=== PATIENT | male | born 1965 | race Caucasian/White ===

== ENCOUNTER 2018-09-02 12:44 | Emergency (ER) | payer MEDICAID ==
[~2018-09-02] VITALS: Ht 162.6 cm; Wt 95.3 kg
[2018-09-02] MEDS ORDERED: GABA600T12 PO (12:57)
--- NOTE | 2018-09-02 13:13 | NUR ---
Patient discharged to home in stable conditon. Written and verbal after care instructions given. Patient verbalizes understanding of instructions. Pt left ER w/ steady gait, accompained by family.
[2018-09-02 13:14] VITALS: BP 116/82
== END 2018-09-02 13:15 | disposition home or self-care (01) ==
LOC: ER 12:44
DX: M54.12 Radiculopathy, cervical region (principal); Z88.0 Allergy status to penicillin; Z79.899 Other long term (current) drug therapy
CPT/HCPCS: A4663

== ENCOUNTER 2018-09-15 06:24 | Emergency (ER) | payer MEDICAID ==
[~2018-09-15 06:24] MED LIST: GABA600T12 PO
== END 2018-09-15 06:33 | disposition left against medical advice (07) ==
LOC: ER 06:25
DX: Z53.21 Procedure and treatment not carried out due to patient leaving prior to being seen by health care provider (principal)

== ENCOUNTER 2018-10-07 00:15 | Emergency (ER) | payer MEDICAID ==
[~2018-10-07] VITALS: Ht 162.6 cm; Wt 95.3 kg
--- NOTE | 2018-10-07 00:20 | NUR ---
Pt. ambulated into ED w/ c/o 6/10 L flank pain x 3 days, polyuria, dysuria
--- NOTE | 2018-10-07 00:30 | NUR ---
at bedside for MSE,
[2018-10-07] MEDS ORDERED: FLUO40CA8 PO (00:31)
[2018-10-07] MEDS ORDERED: BUPR300T52 PO (00:31)
[2018-10-07] MEDS ORDERED: IBUP-1955 PO (00:31)
--- NOTE | 2018-10-07 00:50 | NUR ---
Phleb. tech. at bedside for blood draw, specimens collected and taken to lab,
[2018-10-07 00:54] LABS: *BILIRUBIN,URIN NEGATIVE (NEGATIVE); *CLARITY,URINE CLEAR (CLEAR); *COLOR,URINE YELLOW (YELLOW); *KETONES,URINE NEGATIVE (NEGATIVE); LEUKOCYTE ESTERASE ,URINE NEGATIVE (NEGATIVE); NITRITE, URINE NEGATIVE (NEGATIVE); UGLUCOSE NEGATIVE (NEGATIVE)
[2018-10-07 00:55] LABS: *BLOOD, URINE TRACE (NEGATIVE)
[2018-10-07 01:00] LABS: BACTERIA,URINE NONE SEEN /HPF (NONE SEEN); SQUAMOUS EPITHELIAL CELL,UR FEW /HPF (NONE SEEN)
[2018-10-07 01:01] LABS: MUCUS,URINE FEW /LPF (0-FEW)
[2018-10-07 01:05] LABS: BASOPHILS # (AUTO) 0.1 K/uL (0.0-8.0); BASOPHILS % (AUTO) 0.5 % (0.0-2.0); EOSINOPHILS # (AUTO) 0.2 K/uL (0.0-0.7); EOSINOPHILS % (AUTO) 1.9 % (0.0-7.0); HEMATOCRIT 38.6 % (36.7-47.1); HEMOGLOBIN 12.9 g/dL (12.5-16.3); LYMPHOCYTES # (AUTO) 3.8 K/uL (20.0-40.0); LYMPHOCYTES % (AUTO) 35.2 % (20.5-51.5); MEAN CORPUSCULAR HGB CONC 33 g/dL (32.5-36.3); MEAN CORPUSCULAR VOLUME 77.9 fL (73.0-96.2); NEUTROPHILS # (AUTO) 5.7 K/uL (1.8-8.9); NEUTROPHILS % (AUTO) 53.4 % (38.5-71.5); PLATELET COUNT (AUTO) 301 K/uL (152-348); RED BLOOD CELL COUNT(AUTO) 4.95 MIL/uL (4.06-5.63); WHITE BLOOD COUNT (AUTO) 10.7 K/uL (3.6-10.2)
[2018-10-07 01:16] LABS: CREATININE 0.8 mg/dL (0.6-1.3); POTASSIUM 3.8 mmol/L (3.5-5.1)
--- NOTE | 2018-10-07 01:21 | NUR ---
Pt. back from CT
[2018-10-07] MEDS ORDERED: KETOROLAC TROMETHAMINE 30 MG INJ IM ONE (01:30)
--- NOTE | 2018-10-07 03:13 | NUR ---
Patient discharged to home in stable conditon. Written and verbal after care instructions given. Patient verbalizes understanding of instructions. Patient ambulated with stable gait
[2018-10-07 03:15] VITALS: BP 115/84
== END 2018-10-07 03:16 | disposition home or self-care (01) ==
LOC: ER 00:15
DX: M54.5 Low back pain (principal); R30.0 Dysuria; F11.10 Opioid abuse, uncomplicated; F15.10 Other stimulant abuse, uncomplicated; F17.290 Nicotine dependence, other tobacco product, uncomplicated; Z79.899 Other long term (current) drug therapy; Z88.0 Allergy status to penicillin; Z79.1 Long term (current) use of non-steroidal anti-inflammatories (NSAID)
CPT/HCPCS: 36415; 74176; 80048; 81001; 85025; 87086; 96372; 99284; 99406; J1885; A4663

== ENCOUNTER 2018-10-17 16:34 | Emergency (ER) | payer MEDICAID ==
[~2018-10-17] VITALS: Ht 162.6 cm; Wt 95.3 kg
[~2018-10-17 16:34] MED LIST changes: +BUPR300T52 PO; +FLUO40CA8 PO; +IBUP-1955 PO
--- NOTE | 2018-10-17 16:51 | NUR ---
Urine collected and sent to LAB.
[2018-10-17 17:13] LABS: *BILIRUBIN,URIN NEGATIVE (NEGATIVE); *CLARITY,URINE CLEAR (CLEAR); *COLOR,URINE YELLOW (YELLOW); *KETONES,URINE NEGATIVE (NEGATIVE); *UROBILINOGEN,URINE 0.2 E.U./dl (NORMAL); LEUKOCYTE ESTERASE ,URINE NEGATIVE (NEGATIVE); NITRITE, URINE NEGATIVE (NEGATIVE); UGLUCOSE NEGATIVE (NEGATIVE)
[2018-10-17 17:19] LABS: *BLOOD, URINE TRACE (NEGATIVE)
[2018-10-17 17:21] LABS: MUCUS,URINE FEW /LPF (0-FEW); SQUAMOUS EPITHELIAL CELL,UR FEW /HPF (NONE SEEN); WBC,URINE 0-3 /HPF (0-3)
--- NOTE | 2018-10-17 17:44 | NUR ---
Patient discharged to home in stable conditon. Written and verbal after care instructions given. Patient verbalizes understanding of instructions.
[2018-10-17 17:46] VITALS: BP 150/89
[2018-10-20 20:07] LABS: *GC NAA Negative (Negative); *TRIC.VAG. NAA Negative (Negative)
== END 2018-10-17 17:47 | disposition home or self-care (01) ==
LOC: ER 16:36
DX: N41.0 Acute prostatitis (principal); F11.10 Opioid abuse, uncomplicated; F15.10 Other stimulant abuse, uncomplicated; F17.290 Nicotine dependence, other tobacco product, uncomplicated; Z88.0 Allergy status to penicillin; Z79.1 Long term (current) use of non-steroidal anti-inflammatories (NSAID); Z79.899 Other long term (current) drug therapy
CPT/HCPCS: 87491; A4663